=== PATIENT | female | born 1965 | race Caucasian/White ===

== ENCOUNTER 2019-11-04 16:23 | Emergency (ER) | payer OTHER, SELFPAY ==
[2019-11-04 16:43] VITALS: BP 105/71; PULSE 69; RESP 18; TEMP 36.5; O2SAT 100; BMI 25.0
--- NOTE | 2019-11-04 16:59 | DI.RAD.S_ITS ---
PROCEDURE: XR CHEST 1V INDICATIONS: dizziness TECHNIQUE: One view of the chest was acquired. COMPARISON: None. FINDINGS: Surgical changes and devices: None. Lungs and pleura: Lungs are clear. No pleural effusions or pneumothorax. Mediastinum: Mediastinal contours appear normal. Heart size is normal. Bones and chest wall: No suspicious bony lesions. Overlying soft tissues appear unremarkable. IMPRESSION: No acute disease Dictated by: River Graham M.D. on 11/04/2019 at 17:55 Approved by: River Graham M.D. on 11/04/2019 at 17:56
[2019-11-04 17:15] LABS: Add Manual Diff / Slide Review NO; Basophils Absolute Auto 100 /uL (0-100); Eosinophils Absolute Auto 200 /uL (0-450); Eosinophils Percent Auto 4.5 % (2-4); Hematocrit 43.3 % (36-46); Hemoglobin 14.6 g/dL (12.0-16.0); Lymphocytes Absolute Auto 1900 /uL (1100-4500); Mean Corpuscular HGB Conc 33.7 % (30-36); Mean Corpuscular Hemoglobin 29.5 PG (26-34); Mean Corpuscular Volume 87.4 fL (80-100); Monocytes Absolute Auto 500 /uL (0-900); Monocytes Percent Auto 8.3 % (3-14); Neutrophils Absolute Auto 2900 /uL (1500-7000); Neutrophils Percent Auto 52.2 % (50-75); Platelet Count 284 X10^3/uL (150-400); Red Blood Cell Count 4.96 X10^6/uL (4.0-5.2); White Blood Cell Count 5.5 X10^3/uL (4.5-11.0)
[2019-11-04 17:22] LABS: Blood Urea Nitrogen 18 mg/dL (7-17); Carbon Dioxide 28 mmol/L (22-32); Chloride 103 mmol/L (98-107); Estimated Glomerular Filt Rate > 60.0 mL/min (>60); Glucose 101 mg/dL (70-100); HEMOLYSIS < 15 (0-50); Potassium 4.4 mmol/L (3.4-5.1); Sodium 140 mmol/L (137-145)
[2019-11-04 17:34] LABS: Troponin I < 0.012 ng/mL (0.01-0.034)
[2019-11-04 18:35] LABS: Appearance Urine UA CLEAR; Bilirubin Urine UA NEGATIVE (NEGATIVE); Color Urine UA YELLOW; Glucose Urine UA NEGATIVE (Negative); Ketones Urine UA NEGATIVE (NEGATIVE); Leukocyte Esterase Urine UA TRACE (NEGATIVE); Nitrite Urine UA NEGATIVE (Negative); Occult Blood Urine UA 2+ (Negative); Protein Urine UA NEGATIVE (Negative); Specific Gravity Urine UA 1.015 (1.000-1.035); Urobilinogen Urine UA 0.2 E.U./dL (0.2)
[2019-11-04 18:37] LABS: pH Urine UA 6.5 (4.5-8.0)
[2019-11-04 18:38] LABS: Bacteria Urine None Seen
[2019-11-04 18:40] LABS: UR Morphine/Opiate cutoff 300 Negative (Negative); Ur Creatinine Normal (Normal); Ur Specific Gravity Normal (Normal); Urine Amphetamines Negative (Negative); Urine Barbiturates Negative (Negative); Urine Benzodiazepines Negative (Negative); Urine Cocaine Negative (Negative); Urine MDMA Negative (Negative); Urine Methadone Negative (Negative); Urine Methamphetamines Negative (Negative); Urine Oxycodone Negative (Negative); Urine Phencyclidine Negative (Negative); Urine Tetrahydrocannabinol Positive (Negative); Urine Tricyclic Antidepressant Negative (Negative); Urine pH Normal (Normal)
[2019-11-04 18:45] LABS: Culture Indicated Urine Cult Not Indicated; RBC Urine 5-10/HPF (0-5/HPF); Squamous Epithelial Cell Urine 1-5 /HPF (0-5/HPF); WBC Urine 1-5/HPF (0-5/HPF)
--- NOTE | 2019-11-04 18:54 | PC.NURSE ---
reports light headed, palpitation,nausea, throat tightness, bilateral eyes preassure. denies fever,vomiting, uti sxs, +bm today wnl, alert and awake, skin warm dry pink, moving all ext
[2019-11-04 18:58] VITALS: BP 110/62; PULSE 68; RESP 24; O2SAT 100
[2019-11-04 19:30] VITALS: BP 99/63; PULSE 63; RESP 15; O2SAT 100
[2019-11-04 19:50] LABS: Magnesium 2.1 mg/dL (1.6-2.3)
[2019-11-04 20:00] VITALS: BP 96/59; PULSE 67; RESP 14; O2SAT 98
[2019-11-04 20:21] LABS: Thyroid Stimulating Hormone 0.46 uIU/mL (0.47-4.68)
[2019-11-04 20:36] VITALS: BP 83/50; PULSE 60; RESP 18; O2SAT 96
[2019-11-04 20:47] VITALS: BP 98/50; PULSE 60; RESP 16; O2SAT 96
--- NOTE | 2019-11-04 21:20 | ED_ITS ---
HPI - Dizziness <ERNESTINA Peck - Last Filed: 11/04/19 21:26> General Chief Complaint: Dizziness Stated Complaint: abnormal blood pressure, told to be seen by doctor Time Seen by Provider: 11/04/19 19:16 Source: patient Mode of arrival: Ambulatory Limitations: no limitations History of Present Illness HPI Narrative: The patient is a 53-year-old female nonsmoker with history of thyroid problems who presents the chief complaint of an abnormal blood pressure. She states that she took at home was 98 systolic today. She complains of vague symptoms including palpitations, choking sensation, low blood pressure, lightheadedness, nausea pressure behind her eyes for the past several weeks to months. She is unclear regarding why she came into the emergency department today other than her lower blood pressure at home. She denies any fevers, vomiting, dysuria, abdominal pain. She denies any current chest pain or shortness of breath. She states she is eating and drinking well. The patient states she has palpitations for years, has never had a Holter monitor. Related Data Allergies Allergy/AdvReac Type Severity Reaction Status Date / Time ciprofloxacin [From CIPRO] Allergy Unknown Verified 11/04/19 16:43 ibuprofen [IBUPROFEN] Allergy Unknown swollen, Verified 11/04/19 16:43 pain in stomach Review of Systems <ERNESTINA Peck - Last Filed: 11/04/19 21:26> Review of Systems Narrative: GENERAL: See HPI HEENT: Denies sinus pain, ear pain, sore throat, difficulty swallowing, dizziness. RESPIRATORY: Denies dyspnea, cough, wheezing, hemoptysis, sputum. CARDIOVASCULAR: Denies chest pain, palpitations, orthopnea, edema, GASTROINTESTINAL: See HPI : Denies dysuria, frequency, incontinence, hematuria, urinary retention. MUSCULOSKELETAL: denies weakness, joint pain, or bony pain SKIN: Denies rash, skin lesions, or other NEUROLOGIC: Denies weakness, headache, numbness, change in speech, confusion, seizures, incoordination. PSYCHIATRIC: No concerning psychosocial issues. 12 point review of systems is negative except for those stated above Patient History <ERNESTINA Peck - Last Filed: 11/04/19 21:26> Social History Smoking Status: Never smoker Smoking Status: Never smoker Substance Use Type: marijuana Exam <JUNE Peck - Last Filed: 11/04/19 21:26> Narrative Exam Narrative: GENERAL: This is a well-nourished, well-developed patient, in no acute distress HEAD: Atraumatic. Normocephalic. No temporal or scalp tenderness. EYES: Pupils equal round and reactive. Extraocular motions intact. No scleral icterus. No injection or drainage. ENT: Nose without bleeding, purulent drainage or septal hematoma. Throat without erythema, tonsillar hypertrophy or exudate. Uvula midline. Airway patent. Dry mucous membranes noted NECK: Trachea midline. No JVD or lymphadenopathy. Supple, nontender, no meningeal signs. CARDIOVASCULAR: Regular rate and rhythm without murmurs, gallops, or rubs. RESPIRATORY: Clear to auscultation. Breath sounds equal bilaterally. No wheezes, rales, or rhonchi. No cough. No increased respiratory effort. No accessory muscle use. GASTROINTESTINAL: Abdomen soft, non-tender, nondistended. No hepato- splenomegaly, or palpable masses. No guarding. Active bowel sounds all 4 quadrants EXTREMITIES: No clubbing, cyanosis, or edema. No joint tenderness, effusion, or edema noted. BACK: Nontender without deformity or crepitance. No flank tenderness. NEURO: AOx3, interactive, age appropriate SKIN: No rash or erythema on visible skin Initial Vital Signs Initial Vital Signs: Vital Signs Temperature 97.7 F 11/04/19 16:43 Pulse Rate 69 11/04/19 16:43 Respiratory Rate 18 11/04/19 16:43 Blood Pressure 105/71 11/04/19 16:43 Pulse Oximetry 100 11/04/19 16:43 <Glen Jiang DO - Last Filed: 11/05/19 01:30> Initial Vital Signs Initial Vital Signs: Vital Signs Temperature 97.7 F 11/04/19 16:43 Pulse Rate 69 11/04/19 16:43 Respiratory Rate 18 11/04/19 16:43 Blood Pressure 105/71 11/04/19 16:43 Pulse Oximetry 100 11/04/19 16:43 Scores <AALIYAH Peck-BC - Last Filed: 11/04/19 21:26> GCS [place] coma scale eye opening: Spontaneous [place] coma scale verbal response: Orientated [place] coma scale motor response: Obey commands [place] coma scale total score: 15 Course <Bertha Jayemil CUSTODY ASSISTANT-BC - Last Filed: 11/04/19 21:26> Orders Ordered: ED Orders 11/04/19 16:48 EKG-12 Lead Stat 11/04/19 16:59 XR chest 1V Stat 11/04/19 17:04 Basic Metabolic Panel Stat Complete Blood Count AUTO DIFF Stat Magnesium Stat Thyroid Stimulating Hormone Stat Troponin I Stat 11/04/19 17:20 Urinalysis Sreen (Dip Only) Stat Urine Drug Screen, Rapid Stat Urine Microscopic Stat Discontinued Medications Sodium Chloride (Normal Saline 0.9%) 1,000 mls @ 1,000 mls/hr IV BOLUS ONE Stop: 11/04/19 20:32 Last Admin: 11/04/19 19:51 Dose: Not Given Documented by: JEANETTE Vital Signs Vital signs: Vital Signs - 8 hr 11/04/19 18:58 11/04/19 19:30 11/04/19 20:00 Pulse Rate 68 63 67 Respiratory Rate 24 15 14 Blood Pressure [Left Arm] 110/62 99/63 96/59 L Pulse Oximetry 100 100 98 11/04/19 20:36 11/04/19 20:47 Pulse Rate 60 60 Respiratory Rate 18 16 Blood Pressure [Left Arm] 83/50 L 98/50 L Pulse Oximetry 96 96 <Glen Jiang DO - Last Filed: 11/05/19 01:30> Orders Ordered: ED Orders 11/04/19 16:48 EKG-12 Lead Stat 11/04/19 16:59 XR chest 1V Stat 11/04/19 17:04 Basic Metabolic Panel Stat Complete Blood Count AUTO DIFF Stat Magnesium Stat Thyroid Stimulating Hormone Stat Troponin I Stat 11/04/19 17:20 Urinalysis Sreen (Dip Only) Stat Urine Drug Screen, Rapid Stat Urine Microscopic Stat Discontinued Medications Sodium Chloride (Normal Saline 0.9%) 1,000 mls @ 1,000 mls/hr IV BOLUS ONE Stop: 11/04/19 20:32 Last Admin: 11/04/19 19:51 Dose: Not Given Documented by: JEANETTE Vital Signs Vital signs: Vital Signs - 8 hr 11/04/19 18:58 11/04/19 19:30 11/04/19 20:00 Pulse Rate 68 63 67 Respiratory Rate 24 15 14 Blood Pressure [Left Arm] 110/62 99/63 96/59 L Pulse Oximetry 100 100 98 11/04/19 20:36 11/04/19 20:47 Pulse Rate 60 60 Respiratory Rate 18 16 Blood Pressure [Left Arm] 83/50 L 98/50 L Pulse Oximetry 96 96 MDM - Dizziness <Bertha Estevez, CUSTODY ASSISTANT-BC - Last Filed: 11/04/19 21:26> Lab Data Result diagrams: 11/04/19 17:04 11/04/19 17:04 Labs: Lab Results 11/04/19 11/04/19 11/04/19 Range/Units 17:04 17:04 17:04 WBC 5.5 (4.5-11.0) X10^3/uL RBC 4.96 (4.0-5.2) X10^6/uL Hgb 14.6 (12.0-16.0) g/dL Hct 43.3 (36-46) % MCV 87.4 (80-100) fL MCH 29.5 (26-34) PG MCHC 33.7 (30-36) % RDW 14.0 (11.6-14.8) % Plt Count 284 (150-400) X10^3/uL Neut % (Auto) 52.2 (50-75) % Lymph % (Auto) 34.0 (25-40) % Mcpherson % (Auto) 8.3 (3-14) % Eos % (Auto) 4.5 H (2-4) % Baso % (Auto) 1.0 (0-2) % Neut # (Auto) 2900 (8601-3195) /uL Lymph # (Auto) 1900 (5644-7133) /uL Mcpherson # (Auto) 500 (0-900) /uL Eos # (Auto) 200 (0-450) /uL Baso # (Auto) 100 (0-100) /uL Sodium 140 (137-145) mmol/L Potassium 4.4 (3.4-5.1) mmol/L Chloride 103 (98-107) mmol/L Carbon Dioxide 28 (22-32) mmol/L BUN 18 H (7-17) mg/dL Creatinine 0.90 (0.52-1.04) mg/dL Estimated GFR > 60.0 (>60) mL/min BUN/Creatinine Ratio 20.0 (6-22) Glucose 101 H (70-100) mg/dL Calcium 10.0 (8.4-10.2) mg/dL Magnesium 2.1 (1.6-2.3) mg/dL Troponin I < 0.012 (0.01-0.034) ng/mL TSH (0.47-4.68) uIU/mL Urine Color Urine Appearance Urine pH (4.5-8.0) Ur Specific [place] (1.000-1.035) Urine Protein (Negative) Urine Glucose (UA) (Negative) g/dL Urine Ketones (NEGATIVE) Urine Occult Blood (Negative) Urine Nitrate (Negative) Urine Bilirubin (NEGATIVE) Urine Urobilinogen (0.2) E.U./dL Ur Leukocyte Esterase (NEGATIVE) Urine RBC (0-5/HPF) Urine WBC (0-5/HPF) Ur Squamous Epith Cells (0-5/HPF) Urine Bacteria (None) Ur Culture Indicated? U Opiates 300ng/mL cut (Negative) Ur Oxycodone Screen (Negative) Urine Methadone Screen (Negative) Ur Barbiturates Screen (Negative) U Tricyclic Antidepress (Negative) Ur Phencyclidine Scrn (Negative) Ur Amphetamines Screen (Negative) U Methamphetamines Scrn (Negative) Ur MDMA Scrn (Ecstasy) (Negative) U Benzodiazepines Scrn (Negative) Urine Cocaine Screen (Negative) U Marijuana (THC) Screen (Negative) 11/04/19 11/04/19 11/04/19 Range/Units 17:04 17:20 17:20 WBC (4.5-11.0) X10^3/uL RBC (4.0-5.2) X10^6/uL Hgb (12.0-16.0) g/dL Hct (36-46) % MCV (80-100) fL MCH (26-34) PG MCHC (30-36) % RDW (11.6-14.8) % Plt Count (150-400) X10^3/uL Neut % (Auto) (50-75) % Lymph % (Auto) (25-40) % Mcpherson % (Auto) (3-14) % Eos % (Auto) (2-4) % Baso % (Auto) (0-2) % Neut # (Auto) (0705-6385) /uL Lymph # (Auto) (6971-0583) /uL Mcpherson # (Auto) (0-900) /uL Eos # (Auto) (0-450) /uL Baso # (Auto) (0-100) /uL Sodium (137-145) mmol/L Potassium (3.4-5.1) mmol/L Chloride (98-107) mmol/L Carbon Dioxide (22-32) mmol/L BUN (7-17) mg/dL Creatinine (0.52-1.04) mg/dL Estimated GFR (>60) mL/min BUN/Creatinine Ratio (6-22) Glucose (70-100) mg/dL Calcium (8.4-10.2) mg/dL Magnesium (1.6-2.3) mg/dL Troponin I (0.01-0.034) ng/mL TSH 0.46 L (0.47-4.68) uIU/mL Urine Color Yellow Urine Appearance Clear Urine pH 6.5 (4.5-8.0) Ur Specific [place] 1.015 (1.000-1.035) Urine Protein Negative (Negative) Urine Glucose (UA) Negative (Negative) g/dL Urine Ketones Negative (NEGATIVE) Urine Occult Blood 2+ H (Negative) Urine Nitrate Negative (Negative) Urine Bilirubin Negative (NEGATIVE) Urine Urobilinogen 0.2 (0.2) E.U./dL Ur Leukocyte Esterase Trace H (NEGATIVE) Urine RBC 5-10/hpf H (0-5/HPF) Urine WBC 1-5/hpf (0-5/HPF) Ur Squamous Epith Cells 1-5 /hpf (0-5/HPF) Urine Bacteria None seen (None) Ur Culture Indicated? Cult not indicated U Opiates 300ng/mL cut Negative (Negative) Ur Oxycodone Screen Negative (Negative) Urine Methadone Screen Negative (Negative) Ur Barbiturates Screen Negative (Negative) U Tricyclic Antidepress Negative (Negative) Ur Phencyclidine Scrn Negative (Negative) Ur Amphetamines Screen Negative (Negative) U Methamphetamines Scrn Negative (Negative) Ur MDMA Scrn (Ecstasy) Negative (Negative) U Benzodiazepines Scrn Negative (Negative) Urine Cocaine Screen Negative (Negative) U Marijuana (THC) Screen Positive H (Negative) Imaging Data Chest x-ray: Radiologist's Impression: [address] [address] XRay Report Signed Patient: Zaynab Elliott [facility]#: [id number] : 1965Acct:[id number] Age/Sex: 53 / FDate of Service: 11/04/19 Loc: ED Accession Number: [id number] Procedure: XR chest 1V Ordering Provider: Bertha Jacob D.O. PROCEDURE: XR CHEST 1V INDICATIONS: dizziness TECHNIQUE: One view of the chest was acquired. COMPARISON: None. FINDINGS: Surgical changes and devices: None. Lungs and pleura: Lungs are clear. No pleural effusions or pneumothorax. Mediastinum: Mediastinal contours appear normal. Heart size is normal. Bones and chest wall: No suspicious bony lesions. Overlying soft tissues appea r unremarkable. IMPRESSION: No acute disease Dictated by: iRver Graham M.D. on 11/04/2019 at 17:55 Approved by: River Graham M.D. on 11/04/2019 at 17:56 ECG Data Attestation: I personally reviewed and interpreted this ECG as follows: Interpretation: Sinus rhythm. Ventricular rate 69. P.r. duration 125. QRS 97. Viewed by Dr. Jacob MDM Narrative Medical decision making narrative: The patient is a 53-year-old female who presents with various vague medical complaints including palpitations, dizziness etc that have been ongoing for the past several months.. EKG is unremarkable, chest x-ray unremarkable, lab work is grossly normal. TSH is slightly below range. I discussed this with the patient she would like to follow up with primary care provider regarding this. The patient declines IV fluids and has decision-making capacity to do so as she is GCS 15. I discussed that this could increase her blood pressure, she appears trying exam. Patient still declines due to cost. I discussed at length the importance of follow-up with primary care provider. Discussed possibility of Holter monitor. Contact information was given [facility] human resources coordinator. Discussed at length coming back to the emergency department for any acute concerns should says concerns of heart attack, stroke etc.. Patient has no questions or concerns upon discharge and states understanding of return precautions as well as follow- up care. <Glen Jiang DO - Last Filed: 11/05/19 01:30> Lab Data Labs: Lab Results 01/03/20 01/03/20 01/03/20 Range/Units 17:04 17:04 17:04 WBC 5.5 (4.5-11.0) X10^3/uL RBC 4.96 (4.0-5.2) X10^6/uL Hgb 14.6 (12.0-16.0) g/dL Hct 43.3 (36-46) % MCV 87.4 (80-100) fL MCH 29.5 (26-34) PG MCHC 33.7 (30-36) % RDW 14.0 (11.6-14.8) % Plt Count 284 (150-400) X10^3/uL Neut % (Auto) 52.2 (50-75) % Lymph % (Auto) 34.0 (25-40) % Mcpherson % (Auto) 8.3 (3-14) % Eos % (Auto) 4.5 H (2-4) % Baso % (Auto) 1.0 (0-2) % Neut # (Auto) 2900 (5982-5000) /uL Lymph # (Auto) 1900 (7231-5169) /uL [place]pherson # (Auto) 500 (0-900) /uL Eos # (Auto) 200 (0-450) /uL Baso # (Auto) 100 (0-100) /uL Sodium 140 (137-145) mmol/L Potassium 4.4 (3.4-5.1) mmol/L Chloride 103 (98-107) mmol/L Carbon Dioxide 28 (22-32) mmol/L BUN 18 H (7-17) mg/dL Creatinine 0.90 (0.52-1.04) mg/dL Estimated GFR > 60.0 (>60) mL/min BUN/Creatinine Ratio 20.0 (6-22) Glucose 101 H (70-100) mg/dL Calcium 10.0 (8.4-10.2) mg/dL Magnesium 2.1 (1.6-2.3) mg/dL Troponin I < 0.012 (0.01-0.034) ng/mL TSH (0.47-4.68) uIU/mL Urine Color Urine Appearance Urine pH (4.5-8.0) Ur Specific [place] (1.000-1.035) Urine Protein (Negative) Urine Glucose (UA) (Negative) g/dL Urine Ketones (NEGATIVE) Urine Occult Blood (Negative) Urine Nitrate (Negative) Urine Bilirubin (NEGATIVE) Urine Urobilinogen (0.2) E.U./dL Ur Leukocyte Esterase (NEGATIVE) Urine RBC (0-5/HPF) Urine WBC (0-5/HPF) Ur Squamous Epith Cells (0-5/HPF) Urine Bacteria (None) Ur Culture Indicated? U Opiates 300ng/mL cut (Negative) Ur Oxycodone Screen (Negative) Urine Methadone Screen (Negative) Ur Barbiturates Screen (Negative) U Tricyclic Antidepress (Negative) Ur Phencyclidine Scrn (Negative) Ur Amphetamines Screen (Negative) U Methamphetamines Scrn (Negative) Ur MDMA Scrn (Ecstasy) (Negative) U Benzodiazepines Scrn (Negative) Urine Cocaine Screen (Negative) U Marijuana (THC) Screen (Negative) 11/04/19 11/04/19 11/04/19 Range/Units 17:04 17:20 17:20 WBC (4.5-11.0) X10^3/uL RBC (4.0-5.2) X10^6/uL Hgb (12.0-16.0) g/dL Hct (36-46) % MCV (80-100) fL MCH (26-34) PG MCHC (30-36) % RDW (11.6-14.8) % Plt Count (150-400) X10^3/uL Neut % (Auto) (50-75) % Lymph % (Auto) (25-40) % Mcpherson % (Auto) (3-14) % Eos % (Auto) (2-4) % Baso % (Auto) (0-2) % Neut # (Auto) (9704-4646) /uL Lymph # (Auto) (2765-0958) /uL [place]pherson # (Auto) (0-900) /uL Eos # (Auto) (0-450) /uL Baso # (Auto) (0-100) /uL Sodium (137-145) mmol/L Potassium (3.4-5.1) mmol/L Chloride (98-107) mmol/L Carbon Dioxide (22-32) mmol/L BUN (7-17) mg/dL Creatinine (0.52-1.04) mg/dL Estimated GFR (>60) mL/min BUN/Creatinine Ratio (6-22) Glucose (70-100) mg/dL Calcium (8.4-10.2) mg/dL Magnesium (1.6-2.3) mg/dL Troponin I (0.01-0.034) ng/mL TSH 0.46 L (0.47-4.68) uIU/mL Urine Color Yellow Urine Appearance Clear Urine pH 6.5 (4.5-8.0) Ur Specific [place] 1.015 (1.000-1.035) Urine Protein Negative (Negative) Urine Glucose (UA) Negative (Negative) g/dL Urine Ketones Negative (NEGATIVE) Urine Occult Blood 2+ H (Negative) Urine Nitrate Negative (Negative) Urine Bilirubin Negative (NEGATIVE) Urine Urobilinogen 0.2 (0.2) E.U./dL Ur Leukocyte Esterase Trace H (NEGATIVE) Urine RBC 5-10/hpf H (0-5/HPF) Urine WBC 1-5/hpf (0-5/HPF) Ur Squamous Epith Cells 1-5 /hpf (0-5/HPF) Urine Bacteria None seen (None) Ur Culture Indicated? Cult not indicated U Opiates 300ng/mL cut Negative (Negative) Ur Oxycodone Screen Negative (Negative) Urine Methadone Screen Negative (Negative) Ur Barbiturates Screen Negative (Negative) U Tricyclic Antidepress Negative (Negative) Ur Phencyclidine Scrn Negative (Negative) Ur Amphetamines Screen Negative (Negative) U Methamphetamines Scrn Negative (Negative) Ur MDMA Scrn (Ecstasy) Negative (Negative) U Benzodiazepines Scrn Negative (Negative) Urine Cocaine Screen Negative (Negative) U Marijuana (THC) Screen Positive H (Negative) Discharge Plan Departure Patient Disposition: Home Clinical Impression: Dizziness Discharge Date/Time: 11/04/19 21:23 Instructions: DI for Dizziness-Nonvertigo Activity Restrictions/Additional Instructions: Your labs and workup came back reassuring today. As discussed, your TSH is 0.01 below our normal threshold. Please follow-up with primary care provider regarding this. I've also given the contact information for [facility] human resources coordinator. You may find further lab work and evaluation helpful. A Holter monitor might be helpful for you. In the meantime please push fluids and rest. Please come back to emergency department for any acute concerns such as concern of heart attack or stroke. Referrals: [facility] [Outside]
== END 2019-11-04 21:23 | disposition home or self-care (01) ==
PROVIDERS: Emergency Medicine; Emergency Provider Nurse Practitioner Family
DX: R03.1 Nonspecific low blood-pressure reading (principal); R00.2 Palpitations; R42 Dizziness and giddiness
CPT/HCPCS: 36415; 71045; 80048; 80305; 81003; 81015; 83735; 84443; 84484; 85025; 93005; 99282; 99285